=== PATIENT | female | born 1990 | race Caucasian/White ===

== ENCOUNTER 2019-09-04 08:20 | Inpatient (IN) | payer OTHER ==
[2019-09-04 09:06] VITALS: BMI 33.9
--- NOTE | 2019-09-04 09:23 | HP ---
"COWS - Scale Resting Pulse: 0= [place] 80 or Below Sweatin=Flushed/Facial Moisture Restless Observation: 0= Sits Still Pupil Size: 0= Normal to Room Light Bone or Joint Aches: 2= Severe Diffuse Aches Runny Nose/ Eye Tearin= Nasal Congestion GI Upset > 30mins: 2= Nausea/Diarrhea Tremor Observation: 0= None Yawning Observation: 0= None Anxiety or Irritability: 1=Feels Anxious/Irritable Goose Flesh Skin: 0=Smooth Skin COWS Score: 8 CIWA Score - Admission Criteria OASAS Guidelines: Admission for Medically Managed Detox: Requires at least one of the followin. CIWA greater than 12 2. Seizures within the past 24 hours 3. Delirium tremens within the past 24 hours 4. Hallucinations within the past 24 hours 5. Acute intervention needed for co occurring medical disorder 6. Acute intervention needed for co occurring psychiatric disorder 7. Severe withdrawal that cannot be handled at a lower level of care (continued vomiting, continued diarrhea, abnormal vital signs) requiring intravenous medication and/or fluids 8. Admitting History and Physical - Past Medical History ...LMP: 12/05/14 - Smoking History Smoking history: Current every day smoker Have you smoked in the past 12 months: Yes Aproximately how many cigarettes per day: 10 - Alcohol/Substance Use Hx Alcohol Use: No Admission ROS [facility] Allergies/Adverse Reactions: Allergies Allergy/AdvReac Type Severity Reaction Status Date / Time No Known Allergies Allergy Verified 09/04/19 08:52 History of Present Illness: 29 y.o. female pt requesting detox from heroin use, relapsed May 2019 , current daily use 1 bundle /day IV denies MMTP , illicit Suboxone 2 days ago , latest use [place] , first age of use 22 . cocaine : 1/2 gr IV cannabis : weekly fentanyl - denies tobacco : 1 ppd pmhx : denies pshx : denies psych : bipolar d/o , depression , anxiety denies SI / HI shx : 3 children ages 7 , 21 mo , 7 mo w/ bio GM & bio father who per pt does not use and is aware of pt's use of heroin . Search Terms: [place] n[place], 1990 Search Date: 09/04/2019 09:15:56 AM The Drug Utilization Report below displays all of the controlled substance prescriptions, if any, that your patient has filled in the last twelve months. The information displayed on this report is compiled from pharmacy submissions to the Department, and accurately reflects the information as submitted by the pharmacies. This report was requested by: Lashonda Rodriguez | Reference #: [id number] There are no results for the search terms that you entered. Exam Limitations: Clinical Condition - Review of Systems Constitutional: See HPI EENT: reports: Other (myopia , denies dysphagia) Respiratory: reports: No Symptoms reported Cardiac: reports: Chest Pain (states when not smoking cigarettes) GI: reports: See HPI : reports: No Symptoms Reported Musculoskeletal: reports: See HPI Integumentary: reports: See HPI Neuro: reports: No Symptoms reported Endocrine: reports: No Symptoms Reported Hematology: reports: No Symptoms Reported Psychiatric: reports: Orientated x3, Anxious Patient History - Patient Medical History Hx Anemia: No Hx Asthma: No Hx Chronic Obstructive Pulmonary Disease (COPD): No Hx Cancer: No Hx Cardiac Disorders: No Hx Congestive Heart Failure: No Hx Hypertension: No Hx Hypercholesterolemia: No Hx Pacemaker: No HX Cerebrovascular Accident: No Hx Seizures: No Hx Dementia: No Hx Diabetes: No Hx Gastrointestinal Disorders: No Hx Liver Disease: No Hx Genitourinary Disorders: No Hx Sexually Transmitted Disorders: No Hx Renal Disease (ESRD): No Hx Thyroid Disease: No Hx Human Immunodeficiency Virus (HIV): No (last 2013) Hx Hepatitis C: No Hx Depression: Yes Hx Suicide Attempt: No Hx Bipolar Disorder: No Hx Schizophrenia: No - Patient Surgical History Past Surgical History: No Hx Neurologic Surgery: No Hx Cataract Extraction: No Hx Cardiac Surgery: No Hx Lung Surgery: No Hx Breast Surgery: No Hx Breast Biopsy: No Hx Abdominal Surgery: No Hx Appendectomy: No Hx Cholecystectomy: No Hx Genitourinary Surgery: No Hx Section: No Hx Orthopedic Surgery: No Anesthesia Reaction: No - PPD History Date: 01/03/15 - Reproductive History Last Menstrual Period: 12/05/14 - Smoking Cessation Smoking history: Current every day smoker Have you smoked in the past 12 months: Yes Aproximately how many cigarettes per day: 10 Cigars Per Day: 0 Hx Chewing Tobacco Use: No Initiated information on smoking cessation: Yes 'Breaking Loose' booklet given: 09/04/19 - Substances abused Heroin Substance route: Injection Frequency: Daily Amount used: 1 bundle Age of first use: 22 Date of last use: 09/04/19 Cocaine Substance route: Injection Frequency: 1-2 times per week Amount used: 1/2 gram Age of first use: 16 Date of last use: 09/01/19 Admission Physical Exam S - Vital Signs Vital Signs: Vital Signs - 24 hr 09/04/19 08:53 Temperature 97.5 F L Pulse Rate 52 L Respiratory 18 Rate Blood Pressure 137/73 - Physical General Appearance: Yes: Mild Distress, Anxious HEENTM: Yes: EOMI, Hearing grossly Normal, Normocephalic, Normal Voice Respiratory: Yes: Chest Non-Tender, Lungs Clear, Normal Breath Sounds, No Respiratory Distress, No Accessory Muscle Use Neck: Yes: No masses,lesions,Nodules, Trachea in good position Cardiology: Yes: Regular Rhythm, Regular Rate, S1, S2 Abdominal: Yes: Normal Bowel Sounds, Non Tender, Soft Musculoskeletal: Yes: Gait Steady Extremities: Yes: Normal Range of Motion, Non-Tender Neurological: Yes: Alert, Motor Strength 5/5 Integumentary: Yes: Warm, Track Dean - Diagnostic (1) Opioid use disorder Current Visit: Yes Status: Chronic (2) Nicotine dependence Current Visit: Yes Status: Chronic Qualifiers: Nicotine product type: cigarettes (3) Cocaine use Current Visit: Yes Status: Chronic Breathalyzer - Breathalyzer Breathalyzer: 0 Urine Drug Screen - Test Device Lot number: [id number] Expiration date: 06/30/21 - Control Is test valid?: Yes - Results Drug screen NEGATIVE: No Urine drug screen results: THC-Marijuana, ANNELIESE-Cocaine, FEN-Fentanyl, MOP-Opiates , BUP-Suboxone Inpatient Rehab Admission - Rehab Decision to Admit Inpatient rehab admission?: No"
[2019-09-04] MEDS ORDERED: ACETAMINOPHEN 325 MG TABLET (FP) PO PRN ×2 (09:39)
[2019-09-04] MEDS ORDERED: BISMUTH SUBSALICYLATE 262 MG/15 ML BTL PO PRN (09:39)
[2019-09-04] MEDS ORDERED: MAGNESIUM CITRATE 300 ML BOTTLE PO PRN (09:39)
[2019-09-04] MEDS ORDERED: IBUPROFEN 400 MG TABLET (FP) PO PRN (09:39)
[2019-09-04] MEDS ORDERED: MAG HYDROX/AL HYDROX/SIMETH 30 ML UNIT-DOSE CUP PO PRN (09:39)
[2019-09-04] MEDS ORDERED: MAGNESIUM HYDROX 2400MG/30ML ORAL SUSPENSION 30 ML CUP PO PRN (09:39)
[2019-09-04] MEDS ORDERED: MENTHOL/PHENOL 1 EACH UD MM PRN (09:39)
[2019-09-04] MEDS ORDERED: cloNIDine HCL 0.1 MG TABLET PO PRN (09:42)
[2019-09-04] MEDS: PRENATAL VITAMINS W/ FOLIC ACID TABLET (FP) PO SCH (11:11)
[2019-09-04] MEDS ORDERED: METHADONE HCL 10 MG TABLET (FOR DETOX USE ONLY) PO ONE (13:00)
[2019-09-04] MEDS: NICOTINE 14 MG/24 HOURS TOPICAL PATCH TD SCH (14:10)
[2019-09-04 15:59] LABS: HEMATOCRIT 44.7 % (32.4-45.2); HEMOGLOBIN 14.8 GM/dL (10.7-15.3); MCH 28.2 pg (25.7-33.7); MEAN CELL VOLUME 85.3 fl (80-96); PLATELET COUNT 186 K/MM3 (134-434); RBC 5.23 M/mm3 (3.60-5.2); RDW 13.9 % (11.6-15.6); WHITE BLOOD COUNT 5.4 K/mm3 (4.0-10.0)
[2019-09-04 16:12] LABS: ALBUMIN 3.8 g/dl (3.4-5.0); BILIRUBIN,TOTAL 0.4 mg/dL (0.2-1); BLOOD UREA NITROGEN 9.5 mg/dL (7-18); CALCIUM 8.8 mg/dL (8.5-10.1); CREATININE 0.9 mg/dL (0.55-1.3); POTASSIUM 4.5 mmol/L (3.5-5.1); TOT PROT 7.4 g/dl (6.4-8.2)
[2019-09-04] MEDS: METHOCARBAMOL 500 MG TABLET PO PRN (22:22)
[2019-09-04] MEDS: THIAMINE HCL 100 MG TABLET (FP) PO SCH (22:22)
[2019-09-04] MEDS: hydrOXYzine PAMOATE 25 MG CAPSULE (FP) PO PRN (22:22)
[2019-09-04] MEDS: MELATONIN 5 MG TABLETS PO PRN (22:22)
[2019-09-05] MEDS ORDERED: METHADONE HCL 5 MG TABLET (FOR DETOX USE ONLY) ONE (08:59)
[2019-09-05] MEDS ORDERED: METHADONE HCL 10 MG TABLET (FOR DETOX USE ONLY) ONE (09:00)
[2019-09-05] MEDS ORDERED: METHADONE (DETOX) 20 MG, METHADONE (DETOX) 5 MG PO ONE (10:00)
[2019-09-05] MEDS: NICOTINE 14 MG/24 HOURS TOPICAL PATCH TD SCH (10:25)
[2019-09-05] MEDS: PRENATAL VITAMINS W/ FOLIC ACID TABLET (FP) PO SCH (10:25)
[2019-09-05] MEDS ORDERED: PNEUMOC 13-VAL CONJ-DIP CRM/PF 0.5 ML DISP.SYRIN IM ONE (12:00)
--- NOTE | 2019-09-05 12:49 | EKG ---
Test Reason : Blood Pressure : / mmHG Vent. Rate : 045 BPM Atrial Rate : 045 BPM P-R Int : 154 ms QRS Dur : 098 ms QT Int : 448 ms P-R-T Axes : 054 062 047 degrees QTc Int : 387 ms SINUS BRADYCARDIA WITH SINUS ARRHYTHMIA NONSPECIFIC INTRAVENTRICULAR CONDUCTION DEFECT NO PREVIOUS ECGS AVAILABLE Confirmed by ALYSIA MERCADO MD ([id number]) on 09/05/2019 12:49:10 PM Referred By: Confirmed By:ALYSIA MERCADO MD
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
--- NOTE | 2019-09-05 13:35 | PN ---
S CIWA - CIWA Score Nausea/Vomitin-No Nausea/No Vomiting Muscle Tremors: 3 Anxiety: 3 Agitation: 3 Paroxysmal Sweats: 3 Orientation: 0-Oriented Tacttile Disturbances: 0-None Auditory Disturbances: 0-None Visual Disturbances: 0-None Headache: 0-None Present CIWA-Ar Total Score: 12 BHS COWS - Scale Resting Pulse: 0= [place] 80 or Below Sweatin= Chills/Flushing Restless Observation: 1= Difficult to Sit Still Pupil Size: 0= Normal to Room Light Bone or Joint Aches: 2= Severe Diffuse Aches Runny Nose/ Eye Tearin= Runny Nose/Eyes GI Upset > 30mins: 1= Stomach Cramp Tremor Observation of Outstretched Hands: 2= Slight Tremor Visible Yawning Observation: 2= >3x During Session Anxiety or Irritability: 2=Irritable/Anxious Goose Flesh Skin: 0=Smooth Skin COWS Score: 13 S Progress Note (SOAP) Subjective: sweats shakes interrupted sleep body aches nasal congestion back pain Objective: 09/05/19 13:35 Vital Signs Temperature 97.9 F 09/05/19 10:02 Pulse Rate 55 L 09/05/19 10:02 Respiratory Rate 17 09/05/19 10:02 Blood Pressure 127/90 09/05/19 10:02 O2 Sat by Pulse Oximetry (%) Laboratory Tests 09/04/19 09/04/19 09/04/19 10:05 10:05 10:05 WBC 5.4 RBC 5.23 H Hgb 14.8 Hct 44.7 MCV 85.3 MCH 28.2 MCHC 33.0 RDW 13.9 Plt Count 186 D MPV 10.0 Sodium 137 Potassium 4.5 Chloride 106 Carbon Dioxide 24 Anion Gap 7 L BUN 9.5 Creatinine 0.9 Est GFR (CKD-EPI)AfAm 100.85 Est GFR (CKD-EPI)NonAf 87.01 Random Glucose 92 Calcium 8.8 Total Bilirubin 0.4 AST 17 ALT 22 Alkaline Phosphatase 97 Total Protein 7.4 Albumin 3.8 RPR Titer Nonreactive HIV 1&2 Antibody Screen HIV P24 Antigen 09/04/19 10:05 WBC RBC Hgb Hct MCV MCH MCHC RDW Plt Count MPV Sodium Potassium Chloride Carbon Dioxide Anion Gap BUN Creatinine Est GFR (CKD-EPI)AfAm Est GFR (CKD-EPI)NonAf Random Glucose Calcium Total Bilirubin AST ALT Alkaline Phosphatase Total Protein Albumin RPR Titer HIV 1&2 Antibody Screen Negative HIV P24 Antigen Negative aaox3 ambulating no acute distress Assessment: 09/05/19 13:35 withdrawals Plan: continue detox increase fluids motrin/tyelnol/roboxin prn
[2019-09-05] MEDS: hydrOXYzine PAMOATE 25 MG CAPSULE (FP) PO PRN (21:27)
[2019-09-05] MEDS: THIAMINE HCL 100 MG TABLET (FP) PO SCH (21:27)
[2019-09-05] MEDS: METHOCARBAMOL 500 MG TABLET PO PRN (21:27)
[2019-09-05] MEDS: QUEtiapine FUMARATE 100 MG TABLET (FP) PO SCH (21:28)
[2019-09-06] MEDS ORDERED: METHADONE HCL 10 MG TABLET (FOR DETOX USE ONLY) PO ONE (10:00)
[2019-09-06] MEDS: NICOTINE 14 MG/24 HOURS TOPICAL PATCH TD SCH (10:42)
[2019-09-06] MEDS: PRENATAL VITAMINS W/ FOLIC ACID TABLET (FP) PO SCH (10:42)
[2019-09-06] MEDS: hydrOXYzine PAMOATE 25 MG CAPSULE (FP) PO PRN ×2 (12:07→19:16)
--- NOTE | 2019-09-06 17:59 | PN ---
S CIWA - CIWA Score Nausea/Vomitin-No Nausea/No Vomiting Muscle Tremors: 4-Moderate,w/Arms Extend Anxiety: 4-Mod. Anxious/Guarded Agitation: 3 Paroxysmal Sweats: 1-Minimal Palms Moist Orientation: 0-Oriented Tacttile Disturbances: 0-None Auditory Disturbances: 0-None Visual Disturbances: 0-None Headache: 0-None Present CIWA-Ar Total Score: 12 BHS Progress Note (SOAP) Subjective: Anxiety,yawning, chills, sweats, stomach cramp. Objective: 09/06/19 17:57 Vital Signs - 24 hr 09/05/19 09/06/19 09/06/19 21:51 00:30 03:30 Temperature 97.2 F L Pulse Rate 50 L Respiratory 18 18 16 Rate Blood Pressure 111/52 L 09/06/19 09/06/19 09/06/19 07:19 09:40 13:48 Temperature 97.9 F 97.0 F L 98.0 F Pulse Rate 44 L 83 78 Respiratory 16 18 16 Rate Blood Pressure 115/58 L 117/66 122/64 Laboratory Tests 09/04/19 09/04/19 09/04/19 10:05 10:05 10:05 WBC 5.4 RBC 5.23 H Hgb 14.8 Hct 44.7 MCV 85.3 MCH 28.2 MCHC 33.0 RDW 13.9 Plt Count 186 D MPV 10.0 Sodium 137 Potassium 4.5 Chloride 106 Carbon Dioxide 24 Anion Gap 7 L BUN 9.5 Creatinine 0.9 Est GFR (CKD-EPI)AfAm 100.85 Est GFR (CKD-EPI)NonAf 87.01 Random Glucose 92 Calcium 8.8 Total Bilirubin 0.4 AST 17 ALT 22 Alkaline Phosphatase 97 Total Protein 7.4 Albumin 3.8 RPR Titer Nonreactive HIV 1&2 Antibody Screen HIV P24 Antigen 09/04/19 10:05 WBC RBC Hgb Hct MCV MCH MCHC RDW Plt Count MPV Sodium Potassium Chloride Carbon Dioxide Anion Gap BUN Creatinine Est GFR (CKD-EPI)AfAm Est GFR (CKD-EPI)NonAf Random Glucose Calcium Total Bilirubin AST ALT Alkaline Phosphatase Total Protein Albumin RPR Titer HIV 1&2 Antibody Screen Negative HIV P24 Antigen Negative Alert o x 3 nad oob with steady gait. Assessment: 09/06/19 17:58 MOHAN w/s Plan: cont detox maintain safety increase po fluids
[2019-09-06] MEDS: METHOCARBAMOL 500 MG TABLET PO PRN (22:05)
[2019-09-06] MEDS: QUEtiapine FUMARATE 100 MG TABLET (FP) PO SCH (22:05)
[2019-09-06] MEDS: MELATONIN 5 MG TABLETS PO PRN (22:05)
[2019-09-06] MEDS: THIAMINE HCL 100 MG TABLET (FP) PO SCH (22:05)
[2019-09-07] MEDS ORDERED: METHADONE HCL 5 MG TABLET (FOR DETOX USE ONLY) ONE (08:57)
[2019-09-07] MEDS ORDERED: METHADONE HCL 10 MG TABLET (FOR DETOX USE ONLY) ONE (08:58)
[2019-09-07] MEDS ORDERED: METHADONE (DETOX) 10 MG, METHADONE (DETOX) 5 MG PO ONE (10:00)
[2019-09-07] MEDS: PRENATAL VITAMINS W/ FOLIC ACID TABLET (FP) PO SCH (10:03)
[2019-09-07] MEDS: NICOTINE 14 MG/24 HOURS TOPICAL PATCH TD SCH (10:03)
[2019-09-07 21:29] VITALS: BP 118/64; PULSE 83; TEMP 99.9
--- NOTE | 2019-09-07 21:41 | PN ---
BHS COWS - Scale Resting Pulse: 0= [place] 80 or Below Sweatin=Flushed/Facial Moisture Restless Observation: 1= Difficult to Sit Still Pupil Size: 0= Normal to Room Light Bone or Joint Aches: 2= Severe Diffuse Aches Runny Nose/ Eye Tearin= None GI Upset > 30mins: 0= None Tremor Observation of Outstretched Hands: 2= Slight Tremor Visible Yawning Observation: 0= None Anxiety or Irritability: 2=Irritable/Anxious Goose Flesh Skin: 0=Smooth Skin COWS Score: 9 BHS Progress Note (SOAP) Subjective: OPIOD WITHDRAWAL SX C/O ANXIETY, RESTLESSNESS, SWEATS, SHAKES Objective: 09/07/19 21:38 Vital Signs Temperature 99.9 F H 09/07/19 21:28 Pulse Rate 83 09/07/19 21:28 Respiratory Rate 17 09/07/19 21:28 Blood Pressure 118/64 09/07/19 21:28 O2 Sat by Pulse Oximetry (%) Laboratory Tests 09/04/19 09/04/19 09/04/19 10:05 10:05 10:05 WBC 5.4 RBC 5.23 H Hgb 14.8 Hct 44.7 MCV 85.3 MCH 28.2 MCHC 33.0 RDW 13.9 Plt Count 186 D MPV 10.0 Sodium 137 Potassium 4.5 Chloride 106 Carbon Dioxide 24 Anion Gap 7 L BUN 9.5 Creatinine 0.9 Est GFR (CKD-EPI)AfAm 100.85 Est GFR (CKD-EPI)NonAf 87.01 Random Glucose 92 Calcium 8.8 Total Bilirubin 0.4 AST 17 ALT 22 Alkaline Phosphatase 97 Total Protein 7.4 Albumin 3.8 RPR Titer Nonreactive HIV 1&2 Antibody Screen HIV P24 Antigen 09/04/19 10:05 WBC RBC Hgb Hct MCV MCH MCHC RDW Plt Count MPV Sodium Potassium Chloride Carbon Dioxide Anion Gap BUN Creatinine Est GFR (CKD-EPI)AfAm Est GFR (CKD-EPI)NonAf Random Glucose Calcium Total Bilirubin AST ALT Alkaline Phosphatase Total Protein Albumin RPR Titer HIV 1&2 Antibody Screen Negative HIV P24 Antigen Negative PE ALERT AND ORIENTED X3 SKIN + SWEATING ON FOREHEAD +PERRLA, PUPILS MILDLY DILATED EXT FULL ROM, +TREMORS AMD AD SHAD ANXIOUS, IRRITABLE Assessment: 09/07/19 21:40 OPIOD WITHDRAWAL SX Plan: CONTINUE DETOX ORAL FLUIDS ENCOURAGED MONITOR
[2019-09-07] MEDS: THIAMINE HCL 100 MG TABLET (FP) PO SCH (21:43)
[2019-09-07] MEDS: QUEtiapine FUMARATE 100 MG TABLET (FP) PO SCH (21:43)
--- NOTE | 2019-09-07 23:17 | DS ---
[facility] Detox Discharge Summary Admission Date: 09/04/19 Discharge Date: 09/07/19 - History Additional Comments: Patient is leaving against medical advice. She reports that she feels better and that her mother is here from [place] to pick here up. Risks and consequences of not completing detox reinforced. Patient is adamant on leaving and stats " I don't care about any consequence", I am leaving". Patient is medically stable, alert, oriented to person, place and time. District Medical Examiner and security aware that patint is leaving. Pertinent Past History: Heroin dependence, cocaine dependence, cannabis dependence and depression - Physical Exam Results Vital Signs: Vital Signs Temperature 99.9 F H 09/07/19 21:28 Pulse Rate 83 09/07/19 21:28 Respiratory Rate 17 09/07/19 21:28 Blood Pressure 118/64 09/07/19 21:28 O2 Sat by Pulse Oximetry (%) Laboratory Last Values WBC 5.4 K/mm3 (4.0-10.0) 09/04/19 10:05 RBC 5.23 M/mm3 (3.60-5.2) H 09/04/19 10:05 Hgb 14.8 GM/dL (10.7-15.3) 09/04/19 10:05 Hct 44.7 % (32.4-45.2) 09/04/19 10:05 MCV 85.3 fl (80-96) 09/04/19 10:05 MCH 28.2 pg (25.7-33.7) 09/04/19 10:05 MCHC 33.0 g/dl (32.0-36.0) 09/04/19 10:05 RDW 13.9 % (11.6-15.6) 09/04/19 10:05 Plt Count 186 K/MM3 (134-434) D 09/04/19 10:05 MPV 10.0 fl (7.5-11.1) 09/04/19 10:05 Sodium 137 mmol/L (136-145) 09/04/19 10:05 Potassium 4.5 mmol/L (3.5-5.1) 09/04/19 10:05 Chloride 106 mmol/L (98-107) 09/04/19 10:05 Carbon Dioxide 24 mmol/L (21-32) 09/04/19 10:05 Anion Gap 7 MMOL/L (8-16) L 09/04/19 10:05 BUN 9.5 mg/dL (7-18) 09/04/19 10:05 Creatinine 0.9 mg/dL (0.55-1.3) 09/04/19 10:05 Est GFR (CKD-EPI)AfAm 100.85 09/04/19 10:05 Est GFR (CKD-EPI)NonAf 87.01 09/04/19 10:05 Random Glucose 92 mg/dL (74-106) 09/04/19 10:05 Calcium 8.8 mg/dL (8.5-10.1) 09/04/19 10:05 Total Bilirubin 0.4 mg/dL (0.2-1) 09/04/19 10:05 AST 17 U/L (15-37) 09/04/19 10:05 ALT 22 U/L (13-61) 09/04/19 10:05 Alkaline Phosphatase 97 U/L (45-117) 09/04/19 10:05 Total Protein 7.4 g/dl (6.4-8.2) 09/04/19 10:05 Albumin 3.8 g/dl (3.4-5.0) 09/04/19 10:05 RPR Titer Nonreactive (NONREACTIVE) 09/04/19 10:05 HIV 1&2 Antibody Screen Negative 09/04/19 10:05 HIV P24 Antigen Negative 09/04/19 10:05 Pertinent Admission Physical Exam Findings: Heroin withdrawal symptoms - Medication Discharge Medications: Ambulatory Orders NK [No Known Home Medication] 09/04/19 - Diagnosis (1) Cannabis abuse Current Visit: Yes Status: Acute (2) Cocaine abuse Current Visit: Yes Status: Acute (3) Substance-induced anxiety disorder Current Visit: Yes Status: Acute (4) Nicotine dependence Current Visit: Yes Status: Chronic Qualifiers: Nicotine product type: cigarettes (5) Opioid use disorder Current Visit: Yes Status: Chronic (6) Heroin dependence Current Visit: No Status: Chronic (7) Substance induced mood disorder Current Visit: No Status: Chronic - AMA Did Patient Leave Against Medical Advice: Yes
[2019-09-08] MEDS ORDERED: METHADONE HCL 10 MG TABLET (FOR DETOX USE ONLY) PO ONE (10:00)
[2019-09-09] MEDS ORDERED: METHADONE HCL 5 MG TABLET (FOR DETOX USE ONLY) PO ONE (06:00)
== END 2019-09-07 23:44 | disposition left against medical advice (07) | DRG 770 ==
LOC: YASAS 08:20 → Y6N 10:06
PROVIDERS: ADMIT Allergy & Immunology; ATTEND Allergy & Immunology
PROC: HZ2ZZZZ Detoxification Services for Substance Abuse Treatment (ICD-10-PCS; principal; 2019-09-04)
DX: F11.23 Opioid dependence with withdrawal (principal); F14.10 Cocaine abuse, uncomplicated; F12.10 Cannabis abuse, uncomplicated; F17.210 Nicotine dependence, cigarettes, uncomplicated; F19.24 Other psychoactive substance dependence with psychoactive substance-induced mood disorder; F19.280 Other psychoactive substance dependence with psychoactive substance-induced anxiety disorder; F19.282 Other psychoactive substance dependence with psychoactive substance-induced sleep disorder; F31.9 Bipolar disorder, unspecified
CPT/HCPCS: 36415; 80053; 85027; 86593; 87389; 93005; 93010